=== PATIENT | female | born 1995 | race Caucasian/White ===

== ENCOUNTER 2016-07-07 17:31 | Emergency (ER) | payer OTHER ==
--- NOTE | 2016-07-07 17:57 | ED.PDOC ---
History of Present Illness - General Time Seen by Provider: 07/07/16 17:55 Source: patient, RN notes reviewed Exam Limitations: no limitations - History of Present Illness Initial Comments: K.S. 21 y/o female presently 14 weeks ega based on ob-sono 06/14/16 primigravida stated that she had been having sharp intermittent mid abdominal pain 4 days ago becoming more frequent the last 2 days. She stated able to eat ,no nausea or vomiting,no diarrhea,occasional constipation,no dysuria ,no vaginal bleeding.She stated that her ob-sono showed intrauterine with good heart beat on her first check up. Timing/Duration: other - 4 days ago Quality: sharpness, waxing/waning Onset Location: other - mid abdomen Radiation: none Activites at Onset: none Prior abdominal problems: none Sexual intercourse history: single partner Improving Factors: nothing Worsening Factors: nothing Associated Symptoms: denies symptoms Allergies/Adverse Reactions: Allergies NO KNOWN ALLERGY Allergy (Unverified 05/07/13 17:12) Home Medications: Ambulatory Orders Ondansetron Tab [Zofran Tab] 4 mg PO BID PRN #8 tab 03/17/15 Pantoprazole Sodium [Protonix] 40 mg PO DAILY #14 tab 03/17/15 Review of Systems - Review of Systems Constitutional: States: no symptoms reported EENTM: States: no symptoms reported Respiratory: States: no symptoms reported Cardiology: States: no symptoms reported Gastrointestinal/Abdominal: States: no symptoms reported Genitourinary: States: no symptoms reported Musculoskeletal: States: no symptoms reported Skin: States: no symptoms reported Neurological: States: no symptoms reported Endocrine: States: no symptoms reported Hematologic/Lymphatic: States: no symptoms reported Past Medical History (General) - Patient Medical History Hx Diabetes: No Hx Gastroesophageal Reflux: No - Vaccination History Hx Influenza Vaccination: No - Social History Hx Tobacco Use: No Family Medical History - Family History Mother Family History: No Known Living Status: Unknown Physical Exam - Physical Exam General Appearance: Alert, No apparent distress Eyes, Ears, Nose, Throat Exam: PERRL/EOMI, normal ENT inspection, TMs normal Neck: non-tender, full range of motion, supple, normal inspection Cardiovascular/Respiratory: regular rate, rhythm, no M/R/G, normal peripheral pulses, no JVD Gastrointestinal/Abdominal: normal bowel sounds, non tender, soft, no organomegaly, other - obese with thick panniculus unable to get heart tone by doppler Pelvic Exam: external exam normal, no cerv. motion tender, no masses, other - cervix closed no adnexal tenderness Back Exam: normal inspection, no CVA tenderness Extremity: normal range of motion, non-tender Neurologic: alert, normal mood/affect, oriented x 3 Skin Exam: normal color, warm/dry Lymphatic: no adenopathy Progress - Results/Orders Results/Orders: Laboratory Results Urine Color Yellow (Yellow) 07/07/16 18:46 Urine Appearance Clear (Clear) 07/07/16 18:46 Urine pH 6.0 (4.5-7.8) 07/07/16 18:46 Ur Specific [place] 1.020 (1.005-1.030) 07/07/16 18:46 Urine Protein Negative mg/dL 07/07/16 18:46 Urine Glucose (UA) Negative mg/dL (Negative) 07/07/16 18:46 Urine Ketones Negative mg/dL (NEGATIVE) 07/07/16 18:46 Urine Blood Small (Negative) H 07/07/16 18:46 Urine Nitrite Negative 07/07/16 18:46 Urine Bilirubin Negative (NEGATIVE) 07/07/16 18:46 Urine Urobilinogen 0.2 mg/dL (0.2-1.0) 07/07/16 18:46 Ur Leukocyte Esterase Negative (Negative) 07/07/16 18:46 Urine RBC 0-1 /hpf 07/07/16 18:46 Urine WBC 0 /hpf 07/07/16 18:46 Ur Epithelial Cells 0 /hpf 07/07/16 18:46 Urine Bacteria 0 07/07/16 18:46 Departure - Departure Clinical Impression: Abdominal pain during , antepartum Time of Disposition: 19:25 Disposition: Discharge to Home or Self Care Condition: Good Instructions: DI for Abdominal Pain-Adult Referrals: ARPIT ROSS MD/OBGYN [Primary Care Provider] - 1-2 Weeks Home Medications: Ambulatory Orders Ondansetron Tab [Zofran Tab] 4 mg PO BID PRN #8 tab 03/17/15 Pantoprazole Sodium [Protonix] 40 mg PO DAILY #14 tab 03/17/15 Additional Instructions: NEED TO CALL YOUR COURT SUPERVISOR TOMORROW AM-Office Hours;Continue with your vitamins.Return to emergency room as needed.
[2016-07-07 18:33] VITALS: O2SAT 97
[2016-07-07 19:41] VITALS: BP 142/75; TEMP 99.7
== END 2016-07-07 19:39 | disposition home or self-care (01) ==
LOC: ER 17:31
DX: O26.892 Other specified pregnancy related conditions, second trimester (principal); R10.9 Unspecified abdominal pain; Z3A.14 14 weeks gestation of pregnancy

== ENCOUNTER 2016-10-05 14:39 | Emergency (ER) | payer OTHER ==
--- NOTE | 2016-10-05 14:59 | ED.PDOC ---
History of Present Illness - General Chief Complaint: Abdominal Pain Time Seen by Provider: 10/05/16 14:54 Source: patient Additional Information: C/O UPPER ABDOMINAL PAIN ONSET TODAY. SHARP, CONSTANT RADIATES TO BACK. - History of Present Illness Severity: moderate Worsening Factors: nothing Associated Symptoms: denies symptoms Allergies/Adverse Reactions: Allergies NO KNOWN ALLERGY Allergy (Unverified 05/07/13 17:12) Home Medications: Ambulatory Orders Ondansetron Tab [Zofran Tab] 4 mg PO BID PRN #8 tab 03/17/15 Pantoprazole Tablet [Protonix] 40 mg PO DAILY #14 tab 03/17/15 Acetaminophen W/ Codeine [Tylenol W/ CODEINE #3] 1 ea PO Q6HR PRN #24 10/05/16 Esomeprazole Magnesium [Nexium] 40 mg PO DAILY #15 cap 10/05/16 Promethazine Supp [Phenergan Suppository] 25 mg [place] Q4HR PRN #14 sup 10/05/16 Review of Systems - Review of Systems Constitutional: States: diaphoresis. Denies: chills, fever EENTM: States: no symptoms reported Respiratory: States: no symptoms reported Cardiology: States: no symptoms reported Gastrointestinal/Abdominal: States: abdominal pain, nausea, vomiting. Denies: diarrhea Genitourinary: States: no symptoms reported, other - NO VAG BLEED, NOT LEAKING FLUID Musculoskeletal: States: no symptoms reported Skin: States: no symptoms reported Neurological: States: no symptoms reported Endocrine: States: no symptoms reported Past Medical History (General) - Patient Medical History Hx Seizures: No Hx Asthma: No Hx of COPD: No Hx Cardiac Disorders: No Hx Congestive Heart Failure: No Hx Pacemaker: No Hx Hypertension: No Hx Diabetes: No Hx Gastroesophageal Reflux: No Hx Renal Disease: No Surgical History: cholecystectomy - 2 WEEKS AGO - Vaccination History Hx Influenza Vaccination: No - Social History Hx Tobacco Use: No - Female History Patient : Yes - 14 WEEKS Family Medical History - Family History Mother Family History: No Known Living Status: Unknown Physical Exam - Physical Exam General Appearance: Other - MORBIDLY OBESE, MOD DISTRESS DUE TO PAIN Eye Exam: bilateral normal - NO ICTERUS Ears, Nose, Throat: hearing grossly normal, normal ENT inspection Neck: non-tender, full range of motion, supple, normal inspection Respiratory: lungs clear, no respiratory distress Cardiovascular/Chest: regular rate, rhythm, no murmur Gastrointestinal/Abdominal: normal bowel sounds, soft, no organomegaly, tenderness - MID EPIGASTRIC. EXACERBATES PT'S PAIN WITH PALPATION. Back Exam: normal inspection, no CVA tenderness Extremity: normal range of motion, normal inspection Neurologic: alert, normal mood/affect Skin Exam: normal color, diaphoresis Lymphatic: no adenopathy Progress - Progress Progress: 10/05/16 15:48 DOES NOT FEEL ANY DIFFERENT. [employer] EPIGASTRIC REGION. DID NOT DRINK SLIDER QUICKLY HOWEVER. LAB REVIEWED. 10/05/16 16:58 NO CHANGE AFTER PROTONIX. STILL C/O PAIN. WILL CONTACT SURGEON. 10/05/16 17:42 PT HAS NOT HAD ANY FURTHER VOMITING. D/W DR WADDELL HER SURGEON, HE AGREES WITH PLAN. SHE WILL CALL OFFICE IN AM FOR FOLLOW UP TOMORROW OR MON. - EKG/XRAY/CT XRAY: chest - HANS, NO FREE AIR. Departure - Departure Clinical Impression: Abdominal pain during , ICD-10 Supporting Text: DDX: GASTRITIS, EARLY PANCREATITIS, POST OPERATIVE COMPLICATION Time of Disposition: 17:45 Disposition: Discharge to Home or Self Care Condition: Good Instructions: DI for Gastritis Referrals: ARPIT ROSS MD/OBGYN [Primary Care Provider] - 1-2 Weeks Prescriptions: Promethazine Supp [Phenergan Suppository] 25 mg [place] Q4HR PRN #14 sup PRN Reason: Vomiting Acetaminophen W/ Codeine [Tylenol W/ CODEINE #3] 1 ea PO Q6HR PRN #24 PRN Reason: Pain Esomeprazole Magnesium [Nexium] 40 mg PO DAILY #15 cap Home Medications: Ambulatory Orders Ondansetron Tab [Zofran Tab] 4 mg PO BID PRN #8 tab 03/17/15 Pantoprazole Tablet [Protonix] 40 mg PO DAILY #14 tab 03/17/15 Acetaminophen W/ Codeine [Tylenol W/ CODEINE #3] 1 ea PO Q6HR PRN #24 10/05/16 Esomeprazole Magnesium [Nexium] 40 mg PO DAILY #15 cap 10/05/16 Promethazine Supp [Phenergan Suppository] 25 mg [place] Q4HR PRN #14 sup 10/05/16
[2016-10-05] MEDS ORDERED: LIDOCAINE VIS-MYLANTA 30 ML UD PO ONE (15:04)
[2016-10-05] MEDS ORDERED: PANTOPRAZOLE SODIUM IV 40 MG VIAL IV ONE (15:49)
--- NOTE | 2016-10-05 16:42 | RAD ---
EXAM DESCRIPTION: Chest,1 View CLINICAL HISTORY: 21 years Female EPIGASTRIC PAIN, POST CHOLECYSTECTOMY COMPARISON: None. FINDINGS: The cardiomediastinal silhouette appears unremarkable. No consolidating infiltrates or pleural effusions. No pneumothorax. IMPRESSION: No acute abnormality is identified. Electronically signed by: Francheska Bateman 10/05/2016 4:41 PM CDT
[2016-10-05] MEDS ORDERED: MORPHINE SULFATE INJ 10 MG/ML VIAL IV ONE (17:01)
[2016-10-05] MEDS ORDERED: PROMETHAZINE HCL INJ 12.5 MG in SODIUM CHLORIDE 0.9% 50ML 50 ML IVPB ONE (17:01)
[2016-10-05] MEDS ORDERED: PROMETHAZINE HCL INJ 25 MG/ML VIAL ONE (17:05)
[2016-10-05] MEDS ORDERED: SODIUM CHLORIDE 0.9% 50ML 50 ML ONE (17:06)
[2016-10-05 18:27] VITALS: BP 118/64; O2SAT 95
[2016-10-05 18:28] VITALS: TEMP 97.8
== END 2016-10-05 17:55 | disposition home or self-care (01) ==
LOC: ER 14:39
DX: O99.612 Diseases of the digestive system complicating pregnancy, second trimester (principal); K29.70 Gastritis, unspecified, without bleeding; K85.90 Acute pancreatitis without necrosis or infection, unspecified; O99.212 Obesity complicating pregnancy, second trimester; R10.10 Upper abdominal pain, unspecified; E66.01 Morbid (severe) obesity due to excess calories; Z3A.14 14 weeks gestation of pregnancy
CPT/HCPCS: 36415; 71010; 80053; 81001; 82150; 83690; 85025; A4216; J2270; J2550

== ENCOUNTER → 2016-10-13 | Outpatient (CLI) | payer OTHER | END | disposition home or self-care (01) | LOC: LAB.O 09:12 | PROVIDERS: ATTEND Obstetrics & Gynecology | DX: Z34.02 Encounter for supervision of normal first pregnancy, second trimester (principal); Z3A.14 14 weeks gestation of pregnancy ==

== ENCOUNTER 2019-08-27 18:36 | Emergency (ER) | payer SELFPAY ==
[2019-08-27] MEDS ORDERED: SODIUM CHLORIDE 0.9% (FLUSH) 10 ML SYG IV PRN (19:50)
[2019-08-27] MEDS ORDERED: PROCHLORPERAZINE INJ 10 MG/2 ML VIAL IV ONE (19:51)
[2019-08-27] MEDS ORDERED: KETOROLAC TROMETHAMINE INJ 30 MG/ML VIAL IV ONE (19:51)
--- NOTE | 2019-08-27 21:18 | CT ---
PROCEDURE: CT Head Without Intravenous Contrast CLINICAL INDICATION: The patient is 24 years years old, Female; sz like activity and now with headache TECHNIQUE: Axial computed tomography images of the head/brain without intravenous contrast. Sagittal and coronal reformatted images were created and reviewed. This CT exam was performed using one or more of the following dose reduction techniques: automated exposure control, adjustment of the mA and/or kV according to patient size, and/or use of iterative reconstruction technique. COMPARISON: No relevant prior studies available. FINDINGS: BRAIN: Mild prominence of sulci, sylvian fissures cerebellar folia and basilar cisterns is consistent with volume loss, not expected for age. No intracerebral or extracerebral mass lesions are identified. Velasco/white matter distinction is maintained. There is no evidence of intracranial hemorrhage. There are no areas of acute territorial infarct. (It should be noted that acute infarct may not be discernible in the first [address] ) MIDLINE SHIFT: There is no shift of the midline structures. VENTRICLES: Ventricles are slightly prominent. There is an incidental cavum septum pellucidum which represents a normal variant. BONES/JOINTS: There is no acute calvarial abnormality or other discernible acute osseous abnormalities. SOFT TISSUES: The extracranial soft tissues are unremarkable. VASCULATURE: There is a dominant left vertebral artery on the left. SINUSES: The visualized paranasal sinuses are clear with the exception of mucoperiosteal thickening in the right frontal and left ethmoid sinuses.. MASTOID AIR CELLS: The mastoids and middle ears are clear. NASOPHARYNX: There is adenoidal hypertrophy which is not expected in an adult. Although infectious/inflammatory conditions may cause adenoidal hypertrophy in adults, a malignant etiology is rare but possible in this age group. IMPRESSION: 1. Volume loss, not expected for age, can occur in patient's with history of alcohol abuse or chronic use of certain medications such as dilantin. 2. No acute intracranial abnormality. MRI is recommended in the setting of seizures. 3. There is adenoidal hypertrophy which is not expected in an adult. Although infectious/inflammatory conditions may cause adenoidal hypertrophy in adults, a malignant etiology is rare but possible in this age group. 4. Remainder of findings as discussed above. Electronically signed by: Brittany Manning MD 08/27/2019 9:17 PM CDT
--- NOTE | 2019-08-27 22:24 | ED.PDOC ---
History of Present Illness - General Chief Complaint: Neuro Symptoms/Deficits Stated Complaint: seizure Time Seen by Provider: 08/27/19 19:50 Source: patient, RN notes reviewed, Vital Signs reviewed, family - Father Exam Limitations: no limitations - History of Present Illness Initial Comments: Patient is a 24-year-old white female who presents with complaints of left arm shaking, acute onset of headache afterwards and amnesia to the event. Patient states family said she had seizure-like symptoms lasting approximately 1 minute. On arrival here patient is slightly confused, tired and appears postictal. Patient states that she had a similar episode to this many years ago. Patient's got a history of migraines but this is different than her normal migraine. Patient denies any recent head trauma. Patient does admit to lack of sleep and drinking many caffeinated beverages. Nothing seems to bring this on or make it go away. Patient denies any pain at this time other than her headache, which is throbbing in nature and is severe in intensity. Timing/Duration: 1 hour Severity: severe Improving Factors: nothing Worsening Factors: nothing Associated Symptoms: fatigue, nausea/vomiting - Nausea, sleepy, weakness Allergies/Adverse Reactions: Allergies NO KNOWN ALLERGY Allergy (Unverified 05/07/13 17:12) Home Medications: Ambulatory Orders Ondansetron Tab [Zofran Tab] 4 mg PO BID PRN #8 tab 03/17/15 Pantoprazole Tablet [Protonix] 40 mg PO DAILY #14 tab 03/17/15 Acetaminophen W/ Codeine [Tylenol W/ CODEINE #3] 1 ea PO Q6HR PRN #24 10/05/16 Esomeprazole Magnesium [Nexium] 40 mg PO DAILY #15 cap 10/05/16 Promethazine Supp [Phenergan Suppository] 25 mg ID Q4HR PRN #14 sup 10/05/16 Prochlorperazine Tab [Compazine Tab] 10 mg PO Q6H PRN #12 tab 08/27/19 Review of Systems - Review of Systems Constitutional: States: see HPI, malaise, weakness. Denies: chills, fever EENTM: Denies: eye pain, blurred vision, double vision Respiratory: States: no symptoms reported. Denies: cough, short of breath Cardiology: States: no symptoms reported. Denies: chest pain, palpitations, syncope Gastrointestinal/Abdominal: States: see HPI, nausea. Denies: abdominal pain, diarrhea, vomiting Genitourinary: States: no symptoms reported Musculoskeletal: States: joint pain, muscle pain Skin: States: no symptoms reported. Denies: change in color, rash Neurological: States: headache, weakness. Denies: numbness Endocrine: States: no symptoms reported Hematologic/Lymphatic: States: no symptoms reported All other Systems: Reviewed and Negative Past Medical History (General) - Patient Medical History Hx Seizures: No Hx Stroke: No Hx Asthma: No Hx of COPD: No Hx Cardiac Disorders: No Hx Congestive Heart Failure: No Hx Pacemaker: No Hx Hypertension: No Hx Diabetes: No Hx Gastroesophageal Reflux: No Hx Renal Disease: No Surgical History: cholecystectomy, other - Vaccination History Hx Influenza Vaccination: No Hx Pneumococcal Vaccination: No - Social History Hx Tobacco Use: No - Female History Patient : Yes - 14 WEEKS Expected Date of Delivery:: 01/04/17 Family Medical History - Family History Mother Family History: No Known Living Status: Unknown Hx Family;Other: Maternal hx of DM and cancer Physical Exam - Physical Exam General Appearance: Alert, Anxious, Obvious distress, Obese, Well Developed, Well Groomed, Well Hydrated, Well Nourished Eye Exam: bilateral normal ENT Exam: normal ENT inspection, hearing grossly normal, pharynx normal Neck: non-tender, full range of motion, supple, normal inspection, trachea midline Respiratory: chest non-tender, lungs clear, normal breath sounds, no respiratory distress, no accessory muscle use Cardiovascular/Chest: normal peripheral pulses, regular rate, rhythm, no edema, no gallop, no JVD, no murmur Peripheral Pulses: radial,right: 2+, radial,left: 2+ Gastrointestinal/Abdominal: normal bowel sounds, non tender, soft, no organomegaly, no pulsatile mass Back Exam: normal inspection, no CVA tenderness, no vertebral tenderness Extremities Exam: non-tender, normal range of motion, no evidence of injury, no edema Mental Status: alert, oriented x 3 ems instructor Exam: normal hearing, normal speech, PERRL, abnormal eye position - Left eye deviates to the left. This is a condition patient has had since she was very young. Coordination/Gait: normal finger to nose, normal gait, negative Romberg's sign Motor/Sensory: no motor deficit, no sensory deficit, no pronator drift Skin Exam: normal color, warm/dry Progress - Progress Progress: Differential diagnosis complex migraine headache, new onset seizure disorder, medication reaction, malingering among others. 08/27/19 22:28 Patient symptoms have completely resolved after IV Toradol and IV Compazine. Patient is feeling much better and will follow-up with her PCP in the next day or 2 for referral for a neurology consult. I have discussed the plan of care with the patient and her family member and they voiced understanding and agreement with the plan of care. Ambrosio Olmedo M.D. #[id number] - Results/Orders Results/Orders: PROCEDURE: CT Head Without Intravenous Contrast CLINICAL INDICATION: The patient is 24 years years old, Female; sz like activity and now with headache TECHNIQUE: Axial computed tomography images of the hea d/brain without intravenous contrast. Sagittal and coronal reformatted images were created and reviewed. This CT exam was performed using one or more of the following dose reduction techniques: automated exposure control, adjustment of the mA and/or kV according to patient size, and/or use of iterative reconstruction technique. COMPARISON: No relevant prior studies available. FINDINGS: BRAIN: Mild prominence of sulci, sylvian fissures cerebellar folia and basilar cisterns is consistent with volume loss, not expected for age. No intracerebral or extracerebral mass lesions are identified. Velasco/white matter distinction is maintained. There is no evidence of intracranial hemorrhage. There are no areas of acute territorial infarct. (It should be noted that acute infarct may not be discernible in the first [address] ) MIDLINE SHIFT: There is no shift of the midline structures. VENTRICLES: Ventricles are slightly prominent. There is an incidental cavum septum pellucidum which represents a normal variant. BONES/JOINTS: There is no acute calvarial abnormality or other discernible acute osseous abnormalities. SOFT TISSUES: The extracranial soft tissues are unremarkable. VASCULATURE: There is a dominant left vertebral artery on the left. SINUSES: The visualized paranasal sinuses are clear with the exception of mucoperiosteal thickening in the right frontal and left ethmoid sinuses.. MASTOID AIR CELLS: The mastoids and middle ears are clear. NASOPHARYNX: There is adenoidal hypertrophy which is not expected in an adult. Although infectious/inflammatory conditions may cause adenoidal hypertrophy in adults, a malignant etiology is rare but possible in this age group. IMPRESSION: 1. Volume loss, not expected for age, can occur in patient's with history of alcohol abuse or chronic use of certain medications such as dilantin. 2. No acute intracranial abnormality. MRI is recommended in the setting of seizures. 3. There is adenoidal hypertrophy which is not expected in an adult. Although infectious/inflammatory conditions may cause adenoidal hypertrophy in adults, a malignant etiology is rare but possible in this age group. 4. Remainder of findings as discussed above. Electronically signed by: Brittany Manning MD 08/27/2019 9:17 PM 08/27/19 19:50 IV Care:Saline Lock per Protoc QSHIFT Telemetry .ONCE Sodium Chloride 0.9% (Flush) [Saline Flush Syringe] 10 ml IV PRN PRN Laboratory Results - last 24 hr 08/27/19 08/27/19 08/27/19 19:00 19:00 19:50 WBC 9.3 RBC 4.66 Hgb 12.3 Hct 36.6 MCV 78.4 L MCH 26.3 L MCHC 33.6 RDW 13.9 Plt Count 213 MPV 9.4 Absolute Neuts (auto) 5.50 Absolute Lymphs (auto) 3.00 Absolute Monos (auto) 0.50 Absolute Eos (auto) 0.20 Absolute Basos (auto) 0.00 Neutrophils % 59.5 Lymphocytes % 32.4 Monocytes % 5.8 Eosinophils % 1.8 Basophils % 0.5 Sodium 137 Potassium 3.8 Chloride 107 Carbon Dioxide 24 Anion Gap 9.8 L BUN 14 Creatinine 0.77 BUN/Creatinine Ratio 18.2 POC Glucose 73 Random Glucose 93 Serum Osmolality 274.0 L Calcium 8.7 Total Bilirubin 0.4 AST 17 ALT 16 Alkaline Phosphatase 59 Serum Total Protein 7.2 Albumin 3.5 Globulin 3.7 H Albumin/Globulin Ratio 0.9 L Vital Signs 08/27/19 08/27/19 08/27/19 18:45 19:36 20:31 Temperature 99.9 F H Pulse Rate [ 66 56 L 65 left brachial] Respiratory 15 16 16 Rate Blood Pressure 140/57 133/62 141/61 [left brachial] O2 Sat by Pulse 98 98 97 Oximetry 08/27/19 08/27/19 21:00 22:00 Temperature Pulse Rate [ 64 87 left brachial] Respiratory 16 14 Rate Blood Pressure 126/79 114/84 [left brachial] O2 Sat by Pulse 97 98 Oximetry - EKG/XRAY/CT CT Ordered: Yes Departure - Departure Clinical Impression: Seizure-like activity Migraine headache without aura Qualifiers: Status migrainosus presence: without status migrainosus Intractability: not intractable Qualified Code(s): G43.009 - Migraine without aura, not intractable, without status migrainosus Time of Disposition: 22:30 Disposition: Discharge to Home or Self Care Condition: Fair Departure Forms: ED Discharge - Pt. Copy, Patient Portal Self Enrollment Instructions: Migraines (DC), Seizures, Adult (DC) Diet: resume usual diet Activity: increase activity as tolerated Referrals: Pearl Sol NP [Primary Care Provider] - 1-2 Days Prescriptions: Prochlorperazine Tab [Compazine Tab] 10 mg PO Q6H PRN #12 tab PRN Reason: Headache Or Mild Pain Home Medications: Ambulatory Orders Ondansetron Tab [Zofran Tab] 4 mg PO BID PRN #8 tab 03/17/15 Pantoprazole Tablet [Protonix] 40 mg PO DAILY #14 tab 03/17/15 Acetaminophen W/ Codeine [Tylenol W/ CODEINE #3] 1 ea PO Q6HR PRN #24 10/05/16 Esomeprazole Magnesium [Nexium] 40 mg PO DAILY #15 cap 10/05/16 Promethazine Supp [Phenergan Suppository] 25 mg ID Q4HR PRN #14 sup 10/05/16 Prochlorperazine Tab [Compazine Tab] 10 mg PO Q6H PRN #12 tab 08/27/19
[2019-08-28 00:11] VITALS: BP 129/99; TEMP 98.1; O2SAT 99
== END 2019-08-27 22:55 | disposition home or self-care (01) ==
LOC: ER 18:36
DX: O99.352 Diseases of the nervous system complicating pregnancy, second trimester (principal); G43.009 Migraine without aura, not intractable, without status migrainosus; Z3A.14 14 weeks gestation of pregnancy
CPT/HCPCS: 36415; 70450; 80053; 82948; 85025; J0780; J1885